=== PATIENT | male | born 1955 | race Caucasian/White ===

== ENCOUNTER 2020-11-25 06:14 | Day surgery (SDC) | payer BC ==
[~2020-11-25] VITALS: Ht 175.3 cm; Wt 95.7 kg
[2020-11-25] VITALS (8 sets, daily range): BP systolic 131–159; BP diastolic 53–72; PULSE 57–66; TEMP 97.4–97.9
[~2020-11-25 06:14] MED LIST: allergy relief PO
[2020-11-25] MEDS ORDERED: DAILY MULTIPLE1 T18 PO (06:15)
[2020-11-25] MEDS ORDERED: VITAMIN B COMPL1 SGL PO (06:16)
[2020-11-25] MEDS ORDERED: GLUCOSAMINE & C1 CA1 PO (06:16)
[2020-11-25] MEDS ORDERED: ULTRAM 50MG TAB50 MG PO (08:43)
--- NOTE | 2020-11-25 09:35 | NUR ---
Patient returns to room 8 per cart from PACU and is awake and alert. Exofin dressing x3 covering incisions x3 on mid abdomen dry. Wound edges well approximated. IV fluids infusing and site is free of redness. Temp 97.8 and room air sats 96%. Sipping on water and coffee. Siderails up x2 and call light in reach.
--- NOTE | 2020-11-25 09:50 | NUR ---
Rests with eyes closed when not disturbed.
--- NOTE | 2020-11-25 10:05 | NUR ---
Drinking more coffee. Denies pain or nausea.
--- NOTE | 2020-11-25 10:20 | NUR ---
Resting and watches TV. Denies pain or nausea.
--- NOTE | 2020-11-25 10:35 | NUR ---
Resting without complaints of pain or nausea. IV fluids infusing at TKO.
--- NOTE | 2020-11-25 11:05 | NUR ---
Resting and wathes TV. Patient is awaiting spouse to call for ride home.
--- NOTE | 2020-11-25 12:30 | NUR ---
IV to INT and patient assisted up to the bathroom. Voids and returns to room. INT needle discontinued and site is free of redness and swelling. Patient dresses self. Spouse will arrive approximately 1400. Sitting on chair in room and watches TV.
--- NOTE | 2020-11-25 12:32 | NUR ---
Medicated with Motrin 600mg po for incisional soreness.
--- NOTE | 2020-11-25 13:00 | NUR ---
Dismissal instructions given and signed. [facility] understanding of home cares and provided office appointment date and time.
--- NOTE | 2020-11-25 13:42 | NUR ---
Patient dismissed to home driven by spouse and taken to the front door per wheelchair and assisted into vehicle by Ana BRUCE with dismissal instructions in hand.
== END 2020-11-25 13:43 | disposition home or self-care (01) ==
LOC: SDCO 06:14
DX: K40.91 Unilateral inguinal hernia, without obstruction or gangrene, recurrent (principal); E11.9 Type 2 diabetes mellitus without complications; I10 Essential (primary) hypertension; J40 Bronchitis, not specified as acute or chronic; E66.9 Obesity, unspecified; Z20.822 Contact with and (suspected) exposure to COVID-19; Z68.32 Body mass index [BMI] 32.0-32.9, adult; Z87.891 Personal history of nicotine dependence; Z79.899 Other long term (current) drug therapy
CPT/HCPCS: C1781; J0690; J1100; J1170; J2405; J3010; J7030